=== PATIENT | female | born 1980 | race Two or more races ===

== ENCOUNTER 2018-12-06 21:44 | Emergency (ER) | payer OTHER ==
[~2018-12-06] VITALS: Ht 175.3 cm; Wt 149.7 kg
[~2018-12-06 21:44] MED LIST: AMITRIPTYLINE H25 MG; ATIVAN0.5 M1; CEFTIN250 MG PO; COZAAR25 MG; INTEGRA CAPSUL1 EACH; INTESTINEX1 CAP PO; KETO10TA2 PO; LO LOESTRIN FE1 EACH; PROTONIX40 MG; PROZAC40 MG; SYNTHROID50 MCG; ZANTAC150 MG PO
[2018-12-06] MEDS ORDERED: LOSARTAN POTASS50 MG (21:59)
== END 2018-12-07 00:24 | disposition home or self-care (01) ==
LOC: ER 21:44
DX: J45.998 Other asthma (principal); B34.9 Viral infection, unspecified

== ENCOUNTER 2019-12-14 15:24 | Inpatient (IN) | payer OTHER ==
[~2019-12-14] VITALS: Ht 177.8 cm; Wt 162.4 kg
[~2019-12-14 15:24] MED LIST changes: +LOSARTAN POTASS50 MG
[2019-12-15] MEDS ORDERED: FEOSOL325 MG PO (10:22)
[2019-12-15] MEDS ORDERED: FAMOTIDINE40 MG PO (10:22)
[2019-12-15] MEDS ORDERED: ABANEU-SL TABL1 EACH (10:22)
[2019-12-15] MEDS ORDERED: QUESTRAN PACKET4 GM PO (10:23)
[2019-12-15] MEDS ORDERED: GABAPENTIN600 MG PO (10:23)
[2019-12-17] MEDS ORDERED: ULTRAM50 MG PO (09:54)
[2019-12-17] MEDS ORDERED: TYLENOL ARTHRI650 MG PO (09:55)
[2019-12-17] MEDS ORDERED: MIRALAX17 GM PO (09:55)
== END 2019-12-17 12:48 | disposition home or self-care (01) | DRG 419 ==
LOC: ER 15:24 → SEC-K 12-15 07:44 → O/R 12-15 07:44 → SURH 12-15 07:44 → O/R 12-15 10:20 → SURH 12-15 16:29
PROVIDERS: ADMIT Surgery; ATTEND Surgery
PROC: 0FT44ZZ Resection of Gallbladder, Percutaneous Endoscopic Approach (ICD-10-PCS; principal; 2019-12-15 14:00)
DX: K80.10 Calculus of gallbladder with chronic cholecystitis without obstruction (principal); I10 Essential (primary) hypertension; E03.9 Hypothyroidism, unspecified; E66.01 Morbid (severe) obesity due to excess calories; M79.7 Fibromyalgia; F41.8 Other specified anxiety disorders; K76.0 Fatty (change of) liver, not elsewhere classified

== ENCOUNTER 2021-02-12 04:43 | Emergency (ER) | payer OTHER ==
[~2021-02-12] VITALS: Ht 177.8 cm; Wt 145.1 kg
[~2021-02-12 04:43] MED LIST changes: +ABANEU-SL TABL1 EACH; +FAMOTIDINE40 MG PO; +FEOSOL325 MG PO; +GABAPENTIN600 MG PO; +MIRALAX17 GM PO; +QUESTRAN PACKET4 GM PO; +TYLENOL ARTHRI650 MG PO; +ULTRAM50 MG PO
[2021-02-12] MEDS ORDERED: TAMS0.4C PO (11:41)
[2021-02-12] MEDS ORDERED: KETO10TA2 PO (11:41)
== END 2021-02-12 12:02 | disposition home or self-care (01) ==
LOC: ER 04:43
DX: R10.9 Unspecified abdominal pain (principal)

== ENCOUNTER 2022-05-25 22:44 | Inpatient (IN) | payer OTHER ==
[~2022-05-25] VITALS: Ht 175.3 cm; Wt 147.9 kg
[~2022-05-25 22:44] MED LIST changes: +TAMS0.4C PO
--- NOTE | 2022-05-26 00:15 | NUR ---
PTE VERBALIZA TENER HUBERT DOLOR PELVICO DESDE HOY. PTE VERBALIZA QUE PADECE DE COLON IRITABLE. PTE SE OBSERVA ALERTA Y ORIENTADA X3. ADEMAS, VERBALIZA TENER NAUSEAS
--- NOTE | 2022-05-26 01:17 | NUR ---
SE ORIENTA PTE SOBRE TX MEDICO EL CUAL REFIERE ENTENDER.SE LE EXTRAEN MUESTRAS BAJO MEDIDAS ASEPTICAS,SE CANALIZA Y SE ADMINISTRA MEDICAMENTO MIMI ORDEN MEDICA,SE LE ROSEY HIELO,SE NOTIFICA CT PENDIENTE.
--- NOTE | 2022-05-26 07:16 | NUR ---
PTE ALERTA,ESTABLE Y ORIENTADA.SE EDUCA SOBRE EL TRATAMIENTO QUE RECIBIRA EN EL HOSPITAL Y ESTA REFIERE ENTENDER
[2022-05-27] MEDS ORDERED: METOCLOPRAMIDE H5 MG (10:06)
[2022-05-27] MEDS ORDERED: AMITRIPTYLINE H25 MG (10:06)
[2022-05-27] MEDS ORDERED: DILTIAZEM HCL60 MG (10:06)
[2022-05-27] MEDS ORDERED: PROPRANOLOL HCL10 MG (10:06)
[2022-05-27] MEDS ORDERED: PREGABALIN50 MG (10:07)
[2022-05-27] MEDS ORDERED: LO LOESTRIN FE1 EACH (10:07)
== END 2022-05-29 17:21 | disposition home or self-care (01) | DRG 354 ==
LOC: ER 22:44 → SEC-K 05-26 10:43 → SURH 05-26 10:43
PROVIDERS: Surgery; ADMIT Internal Medicine; ATTEND Internal Medicine
PROC: BW21ZZZ Computerized Tomography (CT Scan) of Abdomen and Pelvis (ICD-10-PCS; 2022-05-26)
PROC: 0WQF0ZZ Repair Abdominal Wall, Open Approach (ICD-10-PCS; principal; 2022-05-26 13:30)
DX: K42.0 Umbilical hernia with obstruction, without gangrene (principal); K56.690 Other partial intestinal obstruction

== ENCOUNTER 2025-05-21 10:37 | Inpatient (IN) | payer OTHER ==
[~2025-05-21] VITALS: Ht 167.6 cm; Wt 108.9 kg
[~2025-05-21 10:37] MED LIST changes: +DILTIAZEM HCL60 MG; +ELAVIL PO; +LYRICA PO; +METOCLOPRAMIDE H5 MG; +PREGABALIN50 MG; +PROPRANOLOL HCL10 MG; +PROTONIX40 MG PO; +PROZAC40 MG PO; +SYNTHROID137 MCG PO; +VITAMIN D310 MCG/1 M PO; +[UNRECOGNIZED DRUG - OTHER] PO
[2025-05-21] MEDS ORDERED: PROTONIX40 MG PO (11:33)
[2025-05-21] MEDS ORDERED: SYNTHROID112 MCG (11:33)
[2025-05-21] MEDS ORDERED: PROZAC20 MG PO (11:34)
--- NOTE | 2025-05-21 11:42 | NUR ---
PACIENTE ALERTA Y ORIENTADA X3. REFIERE COMENZAR CON DIARREAS DESDE EL JUEVES PASADO QUE NO MEJORAN. SE LILIA S/V Y SE UBICA.
[2025-05-21] MEDS ORDERED: PANTOPRAZOLE SODIUM 40 MG in 0.9 % SODIUM CHLORIDE 10 ML IV PUSH STA (12:08)
[2025-05-21] MEDS ORDERED: ONDANSETRON HCL 2 MG/ML VIAL IV ONE (12:15)
[2025-05-21] MEDS ORDERED: 0.9 % SODIUM CHLORIDE 1,000 ML IV SCH (12:15)
[2025-05-21] MEDS ORDERED: ONDANSETRON HCL 2 MG/ML VIAL ONE ×2 (12:23→20:34)
--- NOTE | 2025-05-21 13:03 | NUR ---
SE RECIBE TPE FEMENIAN DE 45 YRS ALERTA CONCIENE Y TRANQUILA , EDS EVALUADA POR LA ,MYRTLE QUIEN ORDENA TRATAMIENTO LACUAL SE MANTIENE BAJO OBSERVACION.
[2025-05-21 13:11] LABS: BASO % 0.1 % (0.1-1.2); EOS # 0.02 (0.04-0.54); EOS % 0.2 % (0.7-7.0); LYMPH # 0.63 (1.18-3.74); LYMPH % 6.3 % (19.3-53.1); MEAN PLATELET VOLUME 11.00 fl (9.4-12.4); MONO # 0.49 (0.24-0.82); MONO % 4.9 % (4.7-12.5); NEUT # 8.80 (1.56-6.13); NEUT % 88.3 % (34.0-71.1); RED CELL DISTRIBUTION WIDTH 12.8 % (11.6-14.4)
[2025-05-21 13:53] LABS: ALT/SGPT 23.0 U/L (12-78); AST/SGOT 18.0 U/L (15-37); BILIRUBIN TOTAL 0.6 mg/dL (0.3-1.2); BUN CREA RATIO 17.0 (7.0-25.0); CREATININE SERUM 0.6 mg/dL (0.55-1.02); GFR 108.6; GLOBULINA 3.7 G/DL (2.4-3.5); GLUCOSE FASTING 96.0 mg/dL (65-100); OSMOLALITY SERUM 278.0 MOSM/KG (275-295)
[2025-05-21 17:59] LABS: URINE APPEARANCE Clear; URINE BILIRRUBIN Negative (NEGATIVE); URINE BLOOD Moderate; URINE COLOR Yellow; URINE GLUCOSE Negative (NEGATIVE); URINE LEUKOCYTE Negative; URINE NITRATE Negative; URINE PROTEIN Negative (NEGATIVE); URINE UROBILINOGEN 0.2 E.U./dl
[2025-05-21 18:00] LABS: URINE BACTERIA 224.4 uL (0.0-1933); URINE EPITHELIAL CELLS 17.5 uL (0.0-38.8); URINE RBC 28.7 uL (0.0-20.8); URINE WBC 3.6 uL (0.0-23.2)
[2025-05-21] MEDS ORDERED: CIPROFLOXACIN IN 5 % DEXTROSE 200 ML IV SCH (18:03)
[2025-05-21] MEDS ORDERED: CIPROFLOXACIN IN 5 % DEXTROSE 400 MG/200 ML PIGGYBAG IV ONE (18:10)
[2025-05-21] MEDS ORDERED: LACTOBACILLUS ACIDOPHILUS 1 CAP CAP PO ONE ×2 (18:10→18:15)
[2025-05-21 18:28] LABS: URINE CAST 0.43 uL (0.0-1.40); URINE CRYSTALS FEW /HPF; URINE KETONE 80 (NEGATIVE)
[2025-05-21] MEDS ORDERED: HYOSCYAMINE SULFATE 0.125 MG TAB.SUBL SL ONE (19:45)
[2025-05-21] MEDS ORDERED: ONDANSETRON HCL 4 MG in 0.9 % SODIUM CHLORIDE 50 ML IV ONE (19:45)
[2025-05-21] MEDS ORDERED: HYOSCYAMINE SULFATE 0.125 MG TAB.SUBL ONE (20:35)
[2025-05-21] MEDS ORDERED: DICYCLOMINE HCL 20 MG TABLET PO SCH (23:12)
[2025-05-21] MEDS ORDERED: ACETAMINOPHEN 325 MG TABLET PO PRN (23:15)
[2025-05-21] MEDS ORDERED: ONDANSETRON HCL 4 MG in 0.9 % SODIUM CHLORIDE 50 ML IV PRN (23:15)
[2025-05-21] MEDS ORDERED: MORPHINE SULFATE 2 MG/ML SYRINGE IV PRN (23:30)
[2025-05-22] MEDS ORDERED: DICYCLOMINE HCL 10 MG CAPSULE PO ONE (00:03)
[2025-05-22 03:34] VITALS: BP 122/76; O2SAT 100
[2025-05-22] MEDS ORDERED: ACETAMINOPHEN 500 MG GEL..CAP PO PRN (07:30)
[2025-05-22 08:00] VITALS: BP 95/66; O2SAT 100
[2025-05-22] MEDS ORDERED: PROPRANOLOL HCL 10 MG TABLET PO SCH (09:00)
[2025-05-22] MEDS ORDERED: LACTOBACILLUS ACIDOPHILUS 1 CAP CAP PO SCH (09:00)
[2025-05-22] MEDS ORDERED: PANTOPRAZOLE SODIUM 40 MG TABLET.DR PO SCH (09:44)
[2025-05-22] MEDS ORDERED: BISMUTH SUBSALICYLATE 262 MG/15 ML BLIST.PACK PO NR (10:00)
[2025-05-22] MEDS ORDERED: BISMUTH SUBSALICYLATE 262 MG/15 ML BLIST.PACK PO ONE (10:00)
[2025-05-22 10:45] LABS: ob POSITIVE (NEGATIVE)
[2025-05-22] MEDS ORDERED: PANTOPRAZOLE SODIUM 40 MG/VIAL VIAL IV SCH (12:00)
[2025-05-22 15:32] LABS: T4 FREE 1.5 NG/ML (0.76-1.46); TSH 0.029 uIU/mL (0.358-3.74)
[2025-05-22] MEDS ORDERED: HYDROCORTISONE ACETATE 25 MG/SUPP.RECT SUPP.RECT RECTAL SCH (17:00)
[2025-05-22 17:48] VITALS: BP 106/70; O2SAT 100
[2025-05-23 02:26] VITALS: BP 105/68; O2SAT 97
[2025-05-23 07:02] LABS: BASO % 0.3 % (0.1-1.2); EOS # 0.10 (0.04-0.54); EOS % 1.4 % (0.7-7.0); LYMPH # 1.05 (1.18-3.74); LYMPH % 15.2 % (19.3-53.1); MEAN PLATELET VOLUME 11.60 fl (9.4-12.4); MONO # 0.47 (0.24-0.82); MONO % 6.8 % (4.7-12.5); NEUT # 5.27 (1.56-6.13); NEUT % 76.0 % (34.0-71.1); RED CELL DISTRIBUTION WIDTH 13.1 % (11.6-14.4)
[2025-05-23 07:17] LABS: ALT/SGPT 19.0 U/L (12-78); AST/SGOT 14.0 U/L (15-37); BILIRUBIN TOTAL 0.51 mg/dL (0.3-1.2); BUN CREA RATIO 19.0 (7.0-25.0); CREATININE SERUM 0.43 mg/dL (0.55-1.02); GFR 159.51; GLOBULINA 2.6 G/DL (2.4-3.5); GLUCOSE FASTING 61.0 mg/dL (65-100); OSMOLALITY SERUM 283.0 MOSM/KG (275-295)
[2025-05-23 08:00] VITALS: BP 97/67; O2SAT 97
[2025-05-23 16:00] VITALS: BP 100/66; O2SAT 100
[2025-05-23 23:53] VITALS: BP 105/71; O2SAT 97
[2025-05-24 06:58] LABS: T4 FREE 1.35 NG/ML (0.76-1.46); T4 TOTAL 8.14 UG/DL (4.8-13.9)
[2025-05-24 08:00] VITALS: BP 108/73; O2SAT 95
[2025-05-24 16:00] VITALS: BP 96/62; O2SAT 99
[2025-05-24] MEDS ORDERED: AMINO ACIDS/PROTEIN HYDROLYS 30 ML BLIST.PACK PO SCH (17:00)
[2025-05-24 20:00] VITALS: BP 105/71
[2025-05-24] MEDS ORDERED: MAGNESIUM CITRATE 296 ML BOTTLE PO ONE (20:00)
[2025-05-25 00:30] VITALS: BP 124/72; O2SAT 100
[2025-05-25] MEDS ORDERED: NA PHOS,M-B/NA PHOS,DI-BA 1 BOTTLE ENEMA RECTAL NR (06:00)
[2025-05-25 09:02] VITALS: BP 97/60; O2SAT 100
[2025-05-25] MEDS ORDERED: MIDAZOLAM HCL 2 MG/2 ML VIAL IV ONE (12:45)
[2025-05-25] MEDS ORDERED: fentaNYL CITRATE 50 MCG/ML AMPUL IV ONE (12:45)
[2025-05-25 16:16] VITALS: BP 105/71; O2SAT 98
[2025-05-26] MEDS ORDERED: FLUOXETINE HCL 20 MG CAPSULE PO SCH (09:00)
== END 2025-05-25 18:56 | disposition home or self-care (01) | DRG 392 ==
LOC: ER 10:38 → SURH 22:54
PROVIDERS: General Practice; Internal Medicine Endocrinology, Diabetes & Metabolism; Internal Medicine Infectious Disease; ADMIT Internal Medicine; ATTEND Internal Medicine
PROC: BW21YZZ Computerized Tomography (CT Scan) of Abdomen and Pelvis using Other Contrast (ICD-10-PCS; 2025-05-21)
PROC: 0DBP8ZX Excision of Rectum, Via Natural or Artificial Opening Endoscopic, Diagnostic (ICD-10-PCS; principal; 2025-05-25)
DX: K52.9 Noninfective gastroenteritis and colitis, unspecified (principal); K62.6 Ulcer of anus and rectum; K64.8 Other hemorrhoids; K62.89 Other specified diseases of anus and rectum; I10 Essential (primary) hypertension; E03.9 Hypothyroidism, unspecified; Z98.84 Bariatric surgery status